=== PATIENT | female | born 1995 | race Hispanic/Latino ===

== ENCOUNTER 2021-11-25 18:25 | Emergency (ER) | payer OTHER, MEDICAID, SELFPAY ==
[2021-11-25 19:05] VITALS: BP 107/63; PULSE 71; RESP 20; TEMP 35.3; O2SAT 100; BMI 29.2
== END 2021-11-25 20:06 | disposition left against medical advice (07) ==
PROVIDERS: Emergency Provider Emergency Medicine
DX: U07.0 Vaping-related disorder (principal)
CPT/HCPCS: 99281

== ENCOUNTER 2022-09-12 16:02 | Emergency (ER) | payer OTHER, MEDICAID, SELFPAY ==
[2022-09-12 16:24] VITALS: BP 119/66; PULSE 115; RESP 20; TEMP 39.1; O2SAT 97; BMI 25.4
[2022-09-12] MEDS: ACETAMINOPHEN 325 MG TABLET 975 MG PO (17:10)
[2022-09-12 17:23] LABS: Influenza A - CEPHEID Flu A POSITIVE (NEGATIVE); Influenza B - CEPHEID Flu B NEGATIVE (NEGATIVE); Respiratory Syncytial Virus Negative (Negative)
[2022-09-12 17:24] LABS: COVID-19 CEPHEID 4-PLEX PCR Negative (Negative)
[2022-09-12] MEDS: ONDANSETRON 4 MG ODT SL (17:27)
--- NOTE | 2022-09-12 17:32 | ED.URI ---
HPI - URI/Sore Throat <STEVE Fung - Last Filed: 09/12/22 17:35> General Chief Complaint: Upper Respiratory Symptoms Stated Complaint: flu like sym x1 day Time Seen by Provider: 09/12/22 17:03 Source: patient Mode of arrival: Ambulatory History of Present Illness HPI Narrative: This is a 27-year-old female presents emergency department after she developed a fever, chills, cough, congestion and headache last night, states that her symptoms have been ongoing today. She is had nausea and vomiting without diarrhea. Has not taking any medication prior to arrival, endorses having chills and feeling tired. Denies dysuria, urinary frequency or urgency. Related Data Previous Rx's Medication Instructions Recorded fluticasone propionate 50 1 spray intranasal BID PRN 09/12/22 mcg/actuation nasal congestion #16 grams spray,suspension ondansetron 4 mg disintegrating 4 mg PO Q8H PRN nausea and 09/12/22 tablet vomiting #10 tabs Allergies Allergy/AdvReac Type Severity Reaction Status Date / Time No Known Drug Allergies Allergy Verified 09/12/22 16:24 Review of Systems <STEVE Fung - Last Filed: 09/12/22 17:35> Review of Systems Narrative: Review of systems is negative for acute abnormalities unless otherwise noted in HPI Patient History <STEVE Fung - Last Filed: 09/12/22 17:35> Social History Smoking Status: Never smoker Smoking Status: Never smoker Substance Use Type: does not use Exam <STEVE Fung - Last Filed: 09/12/22 17:35> Narrative Exam Narrative: Reviewed vitals signs and nursing notes. General: cooperative, comfortable, appears tired, febrile, well groomed HEENT: symmetrical facial expressions, moist mucous membranes, congestion is present without sinus tenderness Cardiovascular: Tachycardic rate and regular rhythm, no peripheral edema, warm extremities Respiratory: normal effort, able to speak in complete sentences, without wheezing, stridor, or abnormal breath sounds. No retractions or tachypnea. Without abnormal breath sounds Skin: brisk capillary refill, without pallor or erythema Neuro: normal speech and cognition, A&O x3, ambulatory, clear speech Psych: mental status is grossly normal, congruent mood, normal affect, pleasant and cooperative Initial Vital Signs Initial Vital Signs: Vital Signs Temperature 102.4 F H 09/12/22 16:24 Pulse Rate 115 H 09/12/22 16:24 Respiratory Rate 20 09/12/22 16:24 Blood Pressure 119/66 09/12/22 16:24 Pulse Oximetry 97 09/12/22 16:24 Oxygen Delivery Method 09/12/22 16:24 <Trace Torres DO - Last Filed: 09/12/22 17:48> Initial Vital Signs Initial Vital Signs: Vital Signs Temperature 102.4 F H 09/12/22 16:24 Pulse Rate 115 H 09/12/22 16:24 Respiratory Rate 20 09/12/22 16:24 Blood Pressure 119/66 09/12/22 16:24 Pulse Oximetry 97 09/12/22 16:24 Oxygen Delivery Method 09/12/22 16:24 Course <STEVE Fung - Last Filed: 09/12/22 17:35> Orders Ordered: ED Orders 09/12/22 16:30 Covid-19 + FLU A/B + RSV - PCR Stat Discontinued Medications Acetaminophen (Acetaminophen 325 Mg Tablet) 975 mg PO NOW ONE Stop: 09/12/22 16:43 Last Admin: 09/12/22 17:10 Dose: 975 mg Documented By: AIRAM Ondansetron HCl (Ondansetron 4 Mg Odt) 4 mg SL NOW ONE Stop: 09/12/22 17:20 Last Admin: 09/12/22 17:27 Dose: 4 mg Documented By: ABRAM Vital Signs Vital signs: Vital Signs - 8 hr 09/12/22 16:24 09/12/22 17:34 Temperature 102.4 F H 99.9 F H Pulse Rate 115 H 100 H Respiratory Rate 20 22 Blood Pressure 119/66 119/58 L Pulse Oximetry 97 97 Oxygen Delivery Method Room Air Room Air <Trace Torres DO - Last Filed: 09/12/22 17:48> Orders Ordered: ED Orders 09/12/22 16:30 Covid-19 + FLU A/B + RSV - PCR Stat Discontinued Medications Acetaminophen (Acetaminophen 325 Mg Tablet) 975 mg PO NOW ONE Stop: 09/12/22 16:43 Last Admin: 09/12/22 17:10 Dose: 975 mg Documented By: AIRAM Ondansetron HCl (Ondansetron 4 Mg Odt) 4 mg SL NOW ONE Stop: 09/12/22 17:20 Last Admin: 09/12/22 17:27 Dose: 4 mg Documented By: ABRAM Vital Signs Vital signs: Vital Signs - 8 hr 09/12/22 16:24 09/12/22 17:34 Temperature 102.4 F H 99.9 F H Pulse Rate 115 H 100 H Respiratory Rate 20 22 Blood Pressure 119/66 119/58 L Pulse Oximetry 97 97 Oxygen Delivery Method Room Air Room Air MDM - URI/Sore Throat <STEVE Fung - Last Filed: 09/12/22 17:35> Lab Data Labs: Lab Results 09/12/22 Range/Units 16:30 SARS-CoV-2 (PCR) Negative (Negative) Influenza A (RT-PCR) Flu a positive H (NEGATIVE) Influenza B (RT-PCR) Flu b negative (NEGATIVE) RSV (PCR) Negative (Negative) MDM Narrative Medical decision making narrative: This is a 27-year-old female presents to the emergency department with upper respiratory cough and cold symptoms that started last night with fever and vomiting. Her respiratory panel is positive for influenza a, she is without hypoxia, respiratory distress, dehydration, or focal exam to suggest secondary bacterial infection. Discussed CDC guidelines for quarantine, mask wearing, physical distancing, and infection prevention measures such as frequent handwashing. Discussed supportive treatments: Tylenol/Motrin as needed for pain/fever. She was prescribed fluticasone for congestion, Zofran for vomiting and recommended OTC decongestant medications and/or antihistamines for symptomatic relief. Maintain adequate fluid intake. Follow-up with PCP as directed. Return to clinic/ER instructions discussed for new, not improving, or worsening symptoms. All questions answered. <Trace Torres DO - Last Filed: 09/12/22 17:48> Lab Data Labs: Lab Results 09/12/22 Range/Units 16:30 SARS-CoV-2 (PCR) Negative (Negative) Influenza A (RT-PCR) Flu a positive H (NEGATIVE) Influenza B (RT-PCR) Flu b negative (NEGATIVE) RSV (PCR) Negative (Negative) Discharge Plan Departure Patient Disposition: Home Clinical Impression: Influenza A Instructions: Influenza, DI for Viral Upper Respiratory Infection -- Adult Activity Restrictions/Additional Instructions: *You have been diagnosed with an upper respiratory viral infection which is most likely influenza a based on your symptoms. We will call you if you are positive for influenza or COVID, please stay hydrated, use Zofran every 8 hours as needed for nausea and vomiting, Imodium can be helpful if you develop diarrhea. Tylenol and ibuprofen are the best for fever, muscle aches. Okay to use Zyrtec 10 mg at night for increased congestion, Mucinex for productive cough, [id number] decongestants can be helpful for the daytime. I hope you feel better soon, good luck. *What to do: *Please continue to take your regular medications as directed. [ ] New medication prescriptions sent to your pharmacy: [ [facility]] [ ] New medication written as a paper prescription [ x] No new medications given *Please follow up with your primary care provider in 2-3 days, call for an appointment. Let them know you were seen in the Emergency Department and that we asked that you be seen for follow-up. We will electronically transmit a record of today's note if your PCP is in our system *If you do not have a primary care provider please contact [phone] to establish care with one of the [facility] primary care providers. *Return to Emergency Department if you should have any new, worsening, or concerning symptoms, such as [fever greater than 101F, chills, worsening pain, persistent vomiting or other bothersome symptoms]. Prescriptions: New ondansetron 4 mg tablet,disintegrating 4 mg PO Q8H PRN (Reason: nausea and vomiting) Qty: 10 0RF fluticasone propionate 50 mcg/actuation spray,suspension 1 spray intranasal BID PRN (Reason: congestion) Qty: 16 0RF Rx Instructions: administer into each nostril Stand Alone Forms: Work Release Note Visit Report Forms: Patient Portal/API <Trace Torres, DO - Last Filed: 09/12/22 17:48> Cosign ED Attending Cosignature Attestation: Dr Torres Co-Sign Statement: I was available for consultation during this patient's emergency department visit. This chart is signed by myself for administrative purposes only. I did not have direct contact with this patient during this visit. They were seen independently by the APC.
[2022-09-12 17:34] VITALS: BP 119/58; PULSE 100; RESP 22; TEMP 37.7; O2SAT 97
== END 2022-09-12 17:45 | disposition home or self-care (01) ==
PROVIDERS: Emergency Medicine; Emergency Provider Nurse Practitioner Critical Care Medicine
DX: J10.1 Influenza due to other identified influenza virus with other respiratory manifestations (principal); Z20.822 Contact with and (suspected) exposure to COVID-19
CPT/HCPCS: 0241U; 99282; 99283

== ENCOUNTER 2024-07-22 22:31 | Emergency (ER) | payer OTHER, MEDICAID, SELFPAY ==
[2024-07-22 22:36] VITALS: BP 120/71; PULSE 107; RESP 18; TEMP 38.1; O2SAT 96; BMI 34.1
--- NOTE | 2024-07-22 22:47 | DI.RAD.S_ITS ---
PROCEDURE: XR CHEST 1V INDICATIONS: suspected sepsis TECHNIQUE: One view of the chest was acquired. COMPARISON: None. FINDINGS: Surgical changes and devices: None. Lungs and pleura: Lungs are clear. No pleural effusions or pneumothorax. Mediastinum: Mediastinal contours appear normal. Heart size is normal. Bones and chest wall: No suspicious bony lesions. Overlying soft tissues appear unremarkable. IMPRESSION: No acute cardiopulmonary abnormality is seen. Dictated by: Jose Serarno M.D. on 07/22/2024 at 23:22 Approved by: Jose Serrano M.D. on 07/22/2024 at 23:23
--- NOTE | 2024-07-22 22:47 | EKG_ITS ---
[address] [address] [address] [address] Test Date: 2024-07-22 Pat Name: Linh Byers Department: [facility] Room: Gender: Female Allopathic Doctor: JAMES : 1995 Requested By: Order Number: [id number] Reading MD: Dale Wells MD Measurements Intervals [place] Rate: 99 P: 58 OK: 152 QRS: 88 QRSD: 90 T: -5 QT: 334 QTc: 428 Interpretive Statements Normal sinus rhythm Nonspecific ST abnormality Abnormal QRS-T angle, consider primary T wave abnormality Electronically Signed On 07-23-2024 7:49:23 PDT by Dale Wells MD
[2024-07-22] MEDS: SODIUM CHLORIDE 0.9% 1,000 ML 1000 ML IV (22:55)
[2024-07-22 23:12] LABS: Add Manual Diff / Slide Review NO; Basophils Absolute Auto 200 /uL (0-100); Basophils Percent Auto 1.4 % (0-2); Eosinophils Absolute Auto 100 /uL (0-450); Eosinophils Percent Auto 0.4 % (2-4); Hematocrit 36.5 % (36-46); Hemoglobin 12.2 g/dL (12.0-16.0); Lymphocytes Absolute Auto 3400 /uL (1100-4500); Lymphocytes Percent Auto 26.1 % (25-40); Mean Corpuscular HGB Conc 33.4 % (30-36); Mean Corpuscular Hemoglobin 28.5 PG (26-34); Mean Corpuscular Volume 85.4 fL (80-100); Monocytes Absolute Auto 600 /uL (0-900); Monocytes Percent Auto 4.4 % (3-14); Neutrophils Absolute Auto 9000 /uL (1500-7000); Neutrophils Percent Auto 67.7 % (50-75); Platelet Count 247 X10^3/uL (150-400); Red Blood Cell Count 4.27 X10^6/uL (4.0-5.2); Red Cell Distribution Width 15.9 % (11.6-14.8); White Blood Cell Count 13.2 X10^3/uL (4.5-11.0)
[2024-07-22 23:18] LABS: Prothrombin Time 11.8 SECONDS (9.4-12.5)
[2024-07-22 23:21] LABS: PTT Partial Thromboplastin Tim 34 SECONDS (25.1-36.5)
[2024-07-22 23:23] LABS: Alanine Aminotransferase 32 IU/L (<35); Albumin 4.6 g/dL (3.5-5.0); Albumin Globulin Ratio 1.3 (1.0-2.8); Alkaline Phosphatase 114 U/L (38-126); Aspartate Aminotransferase 30 IU/L (14-36); BUN Creatinine Ratio 13.8 (6-22); Bilirubin Total 0.8 mg/dL (0.2-1.3); Blood Urea Nitrogen 9 mg/dL (7-17); Calcium 9.1 mg/dL (8.4-10.2); Carbon Dioxide 21 mmol/L (22-32); Chloride 106 mmol/L (98-107); Estimated Glomerular Filt Rate > 60 mL/min (>60); Globulin 3.5 g/dL (1.7-4.1); Glucose 136 mg/dL (70-100); HEMOLYSIS < 15 (0-50); Lactate (Lactic Acid) 1.7 mmol/L (0.7-2.1); Lipase 45 U/L (23-300); Potassium 3.8 mmol/L (3.4-5.1); Sodium 138 mmol/L (137-145); Total Protein 8.1 g/dL (6.3-8.2)
[2024-07-22 23:39] LABS: Procalcitonin 0.032 ng/mL (<0.5)
[2024-07-23 01:09] VITALS: PULSE 90; O2SAT 98
[2024-07-23 01:10] VITALS: BP 111/57; PULSE 92; O2SAT 98
--- NOTE | 2024-07-23 02:00 | ED_ITS ---
HPI - General Adult General Chief complaint: Syncope Stated complaint: chills, headaches Time Seen by Provider: 07/23/24 01:59 Source: patient, RN notes reviewed and old records reviewed Mode of arrival: Ambulatory Limitations: no limitations History of Present Illness HPI narrative: 28-year-old female proximally 1 month with twins presents with complaint of chills, fever headache fatigue dizziness feels some discomfort in her upper thoracic back region for the last several days, she also noted right- sided breast tenderness that began today.. Patient states no cough cold or congestion, no shortness of breath, no nausea or vomiting, has had normal bowel movements. Denies any abdominal back or flank pain. States her C6 incision has been healing well. Denies any dysuria urgency or frequency. No rash or skin changes that she is noted. Patient states she is on prenatals and, states no known drug allergies. No tobacco, alcohol or recreational drugs. She has been she states no complications or issues. She was using nipple Toth with which seems to be helpful. Related Data Previous Rx's Medication Instructions Recorded fluticasone propionate 50 1 spray intranasal BID PRN 09/12/22 mcg/actuation nasal congestion #16 grams spray,suspension ondansetron 4 mg disintegrating 4 mg PO Q8H PRN nausea and 09/12/22 tablet vomiting #10 tabs cephalexin 500 mg capsule 500 mg PO QID 10 days #40 caps 07/23/24 Allergies Allergy/AdvReac Type Severity Reaction Status Date / Time No Known Drug Allergies Allergy Verified 09/12/22 16:24 Review of Systems Review of Systems ROS Unobtainable: All systems reviewed & are unremarkable except as noted in HPI and below Patient History Social History Smoking Status: Never smoker Smoking Status: Never smoker Substance Use Type: does not use Exam Narrative Exam Narrative: GEN: well nourished, well appearing female, alert and oriented x 3, patient appears to be in mild distress. Patient feels warm to the touch. HEENT: Atraumatic, pupils are equal round reactive to light, extraocular movements are intact, nares are clear, TMs are clear with no fluid, there is no conjunctival pallor. Throat is clear without any exudates, erythema, tonsillar enlargement or uvular deviation HEART: Regular rate and rhythm without murmur, clicks, rubs. Cap refill less than 2 seconds. LUNGS:Lungs clear to auscultation, no wheezes, rales, crackles, chest moves symmetrically ABD:bowel sounds normal, soft, non-tender, no guarding, rebound, rigidity, no masses noted, no hepatosplenomegaly :No CVA tenderness MSCL: Non-tender, no muscle atrophy, muscles strength 5/5 upper and lower extremities, full range of motion, normal gait NEURO:CN 2-12 intact, sensation normal SKIN: No rash, erythema or other skin changes. Breast exam patient does not have any erythema or skin changes but is tender at the 7 o'clock position proximal to the nipple. Initial Vital Signs Initial Vital Signs: Vital Signs Temperature 100.6 F H 07/22/24 22:36 Pulse Rate 107 H 07/22/24 22:36 Respiratory Rate 18 07/22/24 22:36 Blood Pressure 120/71 07/22/24 22:36 Pulse Oximetry 96 07/22/24 22:36 Oxygen Delivery Method Room Air 07/22/24 22:36 Course Orders Ordered: ED Orders 07/22/24 22:47 XR chest 1V Stat EKG-12 Lead Stat RT Consult Eval and Treat NOW 07/22/24 22:57 Blood Culture Stat Complete Blood Count AUTO DIFF Stat Comprehensive Metabolic Panel Stat Lactate (Lactic Acid) Stat Lipase Stat PTT Partial Thromboplastin Miguelito Stat Procalcitonin Stat Prothrombin Time INR Stat 07/23/24 02:15 Urine Culture Stat Urine Microscopic Stat Discontinued Medications Cephalexin HCl (Cephalexin 250 Mg Capsule) 500 mg PO NOW ONE Stop: 07/23/24 02:15 Last Admin: 07/23/24 02:22 Dose: 500 mg Documented By: Sodium Chloride (Normal Saline 0.9%) 1,000 mls @ 1,000 mls/hr IV BOLUS ONE Stop: 07/22/24 23:46 Last Infusion: 07/23/24 00:00 Dose: Infused Documented By: Infusion: 07/22/24 23:12 Dose: 1,000 mls/hr Documented By: Infusion: 07/22/24 22:56 Dose: 0 mls/hr Documented By: Admin: 07/22/24 22:55 Dose: 1,000 mls/hr Documented By: ROMERO Ondansetron HCl (Ondansetron 4 Mg/2 Ml Inj) 4 mg IV NOW PRN PRN Reason: Nausea And Vomiting Ondansetron HCl (Ondansetron 4 Mg Odt) 4 mg SL NOW PRN PRN Reason: Nausea And Vomiting Vital Signs Vital signs: Vital Signs - 8 hr 07/22/24 22:36 07/23/24 01:09 07/23/24 01:10 Temperature 100.6 F H Pulse Rate 107 H 90 Respiratory Rate 18 Blood Pressure 120/71 111/57 L Pulse Oximetry 96 98 Oxygen Delivery Method Room Air 07/23/24 01:10 07/23/24 02:37 Temperature Pulse Rate 92 H 83 Respiratory Rate 14 Blood Pressure 107/60 Pulse Oximetry 98 97 Oxygen Delivery Method Room Air Room Air Medical Decision Making Lab Data 07/22/24 22:57 07/22/24 22:57 Labs: Lab Results 07/22/24 07/23/24 Range/Units 22:57 02:15 WBC 13.2 H (4.5-11.0) X10^3/uL RBC 4.27 (4.0-5.2) X10^6/uL Hgb 12.2 (12.0-16.0) g/dL Hct 36.5 (36-46) % MCV 85.4 (80-100) fL MCH 28.5 (26-34) PG MCHC 33.4 (30-36) % RDW 15.9 H (11.6-14.8) % Plt Count 247 (150-400) X10^3/uL Neut % (Auto) 67.7 (50-75) % Lymph % (Auto) 26.1 (25-40) % [place] % (Auto) 4.4 (3-14) % Eos % (Auto) 0.4 L (2-4) % Baso % (Auto) 1.4 (0-2) % Neut # (Auto) 9000 H (2727-6925) /uL Lymph # (Auto) 3400 (8621-5018) /uL [place] # (Auto) 600 (0-900) /uL Eos # (Auto) 100 (0-450) /uL Baso # (Auto) 200 H (0-100) /uL PT 11.8 (9.4-12.5) SECONDS INR 1.0 (0.9-1.3) APTT 34 (25.1-36.5) SECONDS Sodium 138 (137-145) mmol/L Potassium 3.8 (3.4-5.1) mmol/L Chloride 106 (98-107) mmol/L Carbon Dioxide 21 L (22-32) mmol/L BUN 9 (7-17) mg/dL Creatinine 0.65 (0.52-1.04) mg/dL Estimated GFR > 60 (>60) mL/min BUN/Creatinine Ratio 13.8 (6-22) Glucose 136 H (70-100) mg/dL Lactate 1.7 (0.7-2.1) mmol/L Calcium 9.1 (8.4-10.2) mg/dL Total Bilirubin 0.8 (0.2-1.3) mg/dL AST 30 (14-36) IU/L ALT 32 (<35) IU/L Alkaline Phosphatase 114 (38-126) U/L Total Protein 8.1 (6.3-8.2) g/dL Albumin 4.6 (3.5-5.0) g/dL Globulin 3.5 (1.7-4.1) g/dL Albumin/Globulin Ratio 1.3 (1.0-2.8) Lipase 45 (23-300) U/L Procalcitonin 0.032 (<0.5) ng/mL Urine RBC 0-1/hpf (0-5/HPF) Urine WBC 30-100/hpf H (0-5/HPF) Ur Squamous Epith Cells 1-5 /hpf (0-5/HPF) Ur Transition Epith Cell 0-1/hpf (0-5/HPF) Ur Renal Epithelial Cell 1-5/hpf H (0-1/HPF) Urine Bacteria Few (2-10) H (None) Urine Mucus 1+ H (Negative) Ur Culture Indicated? Cult not indicated Vol Urine Centrifuged 10ml (spun) Point of Care Testing Test Results Negative Urine Dip Bedside Urine Glucose Negative Bedside Urine Bilirubin - Negative Bedside Urine Ketone - Negative Urine Specific [place] 1.015 Bedside Urine Occult Blood ++ Bedside Urine pH 6.0 Bedside Urine Protein - Negative Bedside Urine Urobilinogen - Negative Bedside Urine Nitrite - Negative Bedside Urine Leukocytes ++ 125 Esterase Point of care testing: Point of Care Testing Test Results Negative Urine Dip Bedside Urine Glucose Negative Bedside Urine Bilirubin - Negative Bedside Urine Ketone - Negative Urine Specific [place] 1.015 Bedside Urine Occult Blood ++ Bedside Urine pH 6.0 Bedside Urine Protein - Negative Bedside Urine Urobilinogen - Negative Bedside Urine Nitrite - Negative Bedside Urine Leukocytes ++ 125 Esterase Imaging Data Chest x-ray: Radiologist's Impression: Close Chest X-Ray (Signed) Jose Serrano - 07/22/24 Launch?[address] [address] XRay Report Signed Patient: Linh Byers MR#: [id number] : 1995 Acct:[id number] Age/Sex: 28 / F Date of Service: 07/22/24 Loc: ED Accession Number: [id number] Procedure: XR chest 1V Ordering Provider: Marii Cannon D.O. PROCEDURE: XR CHEST 1V INDICATIONS: suspected sepsis TECHNIQUE: One view of the chest was acquired. COMPARISON: None. FINDINGS: Surgical changes and devices: None. Lungs and pleura: Lungs are clear. No pleural effusions or pneumothorax. Mediastinum: Mediastinal contours appear normal. Heart size is normal. Bones and chest wall: No suspicious bony lesions. Overlying soft tissues appear unremarkable. IMPRESSION: No acute cardiopulmonary abnormality is seen. Dictated by: Jose Serrano M.D. on 07/22/2024 at 23:22 Approved by: Jose Serrano M.D. on 07/22/2024 at 23:23 [facility] Narrative Medical decision making narrative: White count 13.2 hemoglobin of 12.2 platelets are 247, coags are negative. CO2 is 21, sodium is 138 potassium 3.8 chloride 106 BUN 9 creatinine 0.65 glucose is 136 lactate 1.7 LFTs are negative, procalcitonin 0.032. Blood cultures were obtained. Point of care urine shows leukocyte esterase, microscopy shows 3200 WBCs 1-5 squamous 1 transitional 1-5 renal epithelial few bacteria 1+ mucus. Negative . Chest x-ray is negative for acute change. Patient received a L of fluids, Tylenol heart rate improved, blood pressure has been appropriate. 28-year-old female comes in with complaint of fevers she was slightly tachycardic, labs were ordered she admits serous criteria. Did receive a L of fluid has not had any hypotension. She is feeling improved patient has had some systemic symptoms but also some right breast tenderness and suspect mastitis. She has been she states that has been going well she has not had any issues with clogged ducts. Discharge Plan Departure Patient Disposition: Home Clinical Impression: Mastitis, right, acute Instructions: DI for Mastitis Activity Restrictions/Additional Instructions: Please follow up for recheck in the next 24-48 hours if you are not starting to feel improved. Take oral antibiotics until completed. Prescription sent to [facility] in [place]. You can take Tylenol up to a 1000 mg every 6 hours and/or ibuprofen up to 600 mg every 6 hours as needed for muscle aches or fevers. You can continue to breastfeed regularly and/or pump if you do this as well. You can use moist warm heat to the affected area as needed if it is helpful for discomfort. Please return if you are feeling worse, having new or increasing redness swelling fluid collections lumps on the breast, new chest pain or shortness of breath, persistent vomiting, lightheadedness or passing out or other new or concerning changes. Prescriptions: New cephalexin 500 mg capsule 500 mg PO QID 10 Days Qty: 40 0RF No Action ondansetron 4 mg tablet,disintegrating 4 mg PO Q8H PRN (Reason: nausea and vomiting) Qty: 10 0RF fluticasone propionate 50 mcg/actuation spray,suspension 1 spray intranasal BID PRN (Reason: congestion) Qty: 16 0RF Rx Instructions: administer into each nostril Referrals: Miscellaneous,Doctor, [Primary Care Provider] - Stand Alone Forms: Patient Portal/API
[2024-07-23] MEDS: cephALEXin 250 MG CAPSULE 500 MG PO (02:22)
[2024-07-23 02:37] VITALS: BP 107/60; PULSE 83; RESP 14; O2SAT 97
[2024-07-23 02:41] LABS: RBC Urine 0-1/HPF (0-5/HPF); Urine Volume 10mL (spun)
[2024-07-23 02:42] LABS: Bacteria Urine Few (2-10); Renal Epithelial Cells Urine 1-5/HPF (0-1/HPF); Squamous Epithelial Cell Urine 1-5 /HPF (0-5/HPF); Transitional Epi Cells Urine 0-1/HPF (0-5/HPF); WBC Urine 30-100/HPF (0-5/HPF)
[2024-07-23 02:43] LABS: Culture Indicated Urine Cult Not Indicated; Mucus Urine 1+ (Negative)
== END 2024-07-23 02:37 | disposition home or self-care (01) ==
PROVIDERS: Emergency Provider Emergency Medicine
DX: N61.0 Mastitis without abscess (principal); M54.6 Pain in thoracic spine
CPT/HCPCS: 36415; 71045; 80053; 81003; 81015; 81025; 83605; 83690; 84145; 85025; 85610; 85730; 87040; 87086; 93005; 96360; 99284